=== PATIENT | female | born 1980 | race American Indian/Alaskan Native ===

== ENCOUNTER 2018-04-23 23:10 | Emergency (ER) | payer MEDICAID ==
[2014-04-07 10:29] VITALS: BMI 23.3
--- NOTE | 2018-04-24 01:02 | OBHP ---
Datetime: 04/24/2018 00:54 IP Adm Impression: Term, intrauterine IP Admit Plan: Observation/Evaluation; Discharge home Admit Comment, IP Provider: Patient is a @ 40 wks with complaints of uterine contractions, n o vaginal bleeding, no leaking, +FM. Patient reports no antepartum history, prevoius x , no medi kay problems, no previous surgeries VE=L/T/C FHR = 150 mod darrell, +accels, no decels TOCO = ctxning q 5-7 mins A/P 1. Patient evalauted and ruled out for labor. L/T/C on exam and contractions not causing a lot of discomfort. 2. Discussed with patient plan of care is for discharge, patient has appt this week with clinic - will discuss with them at that time plan for induction 3. Otherwise labor precautions given, discharge home Pelvic Type - PN: Adequate Extremities - PN: Normal Abdomen - PN: Normal Back - PN: Normal Breast - PN: Normal Lungs - PN: Normal Heart - PN: Normal Thyroid - PN: Normal Neurologic - PN: Normal HEENT - PN: Normal General - PN: Normal FHR - Baseline A Provider: 150 Contraction Comments Provider: q 5-7 mins EGA AdmitDate IP: 40.0 Vital Signs Provider: Reviewed; Within Normal Limits IP Chief Complaint: Uterine contractions NICHD Variability Prov Fetus A: Moderate 6-25bpm NICHD Accel Fetus A IP Provider: [id number] FHR Category Provider Fetus A: Category I NICHD Decel Fetus A IP Provider: None Dilatation, Provider: closed Effacement, Provider: thick Station, Provider: high Genitourinary Exam: Normal DTRs - PN: Normal
--- NOTE | 2018-04-24 01:03 | OBDCSUM ---
Datetime: 04/24/2018 00:10 Discharged to, Provider: Home Follow up at, Provider: Primary Care Provider [facility] Disch Instr Activity: Normal activity Disch Instr Diet: Regular Discharge Diagnosis, Provider: Christiano Labor - Undelivered Discharge Time: 04/24/2018 00:10 Follow up in weeks, Provider: Tomorrow 04/24/2018 on scheduled appointment Disch Referrals: None
== END 2018-04-24 00:10 | disposition home or self-care (01) ==
LOC: H.EROB2 23:10
DX: O26.93 Pregnancy related conditions, unspecified, third trimester (principal); R10.2 Pelvic and perineal pain; O48.0 Post-term pregnancy; Z3A.40 40 weeks gestation of pregnancy

== ENCOUNTER 2018-04-24 05:29 | Inpatient (IN) | payer MEDICAID ==
[2018-04-24 05:55] VITALS: BMI 33.7
[2018-04-24] MEDS ORDERED: Lactated Ringer's 1,000 ML IV ONE (06:05)
[2018-04-24] MEDS ORDERED: Oxytocin 30 UNIT 30 UNITS/500 ML BAG IV ONE ×2 (06:05)
[2018-04-24] MEDS ORDERED: Lactated Ringer's 1,000 ML IV SCH ×5 (06:15→18:13)
[2018-04-24] MEDS ORDERED: Fentanyl/Bupivacaine HCl 250 ML EPI ONE (06:15)
[2018-04-24] MEDS ORDERED: OXYTOCIN/0.9 % NS 20 UNIT/1,000 ML BAG IV SCH ×2 (06:15→18:13)
[2018-04-24 06:25] LABS: BASO % 0.2 % (0.0-2.0); EOS % 0.7 % (0.0-4.0); HEMOGLOBIN 11.1 g/dL (12.0-16.0); LYMPH # 1.8 K/uL (1.0-4.3); MEAN CELL VOLUME 82.5 fl (81.0-99.0); MEAN CORPUSCULAR HEMOGLOBIN 27.3 pg (27.0-31.0); MEAN CORPUSCULAR HGB CONC 33.1 g/dL (33.0-37.0); MEAN PLATELET VOLUME 9.3 fl (7.2-11.7); MONO # 0.6 K/uL (0.0-0.8); MONO % 7.6 % (0.0-10.0); NEUT # 5.1 K/uL (1.8-7.0); NEUT % 67.5 % (50.0-75.0); NRBC % 0.6 % (0.0-0.0); RBC 4.08 Mil/uL (3.80-5.20); RED CELL DISTRIBUTION WIDTH 14.3 % (11.5-14.5); WHITE BLOOD COUNT 7.5 K/uL (4.8-10.8)
[2018-04-24] MEDS: Lactated Ringer's 1,000 ML IV SCH ×4 (06:30→10:30)
--- NOTE | 2018-04-24 07:54 | OBADHP ---
Datetime: 04/24/2018 07:48 Admit Comment, IP Provider: Patient is a @ 40 wks, presents grossly ruptured and in labor. P atient presented earlier in the evening and was 1cm. She came back to the hospital grossly ruptured a nd with much more painful contractions. No antepartum issues, no medical problems, previous x 1, no surgeries, no allergies VE=/-1 PHE=[id number] mod darrell, no accels, early decels TOCO ctxning q 2-4 mins A/p 1. patient presents in active labor and grossly ruptured. Admit to unit, start IVF, cbc, type and screen 2. CEFM and TOCO 3. Re-evalaute as needed, epidural offered Pelvic Type - PN: Adequate Extremities - PN: Normal Abdomen - PN: Normal Back - PN: Normal Breast - PN: Normal Lungs - PN: Normal Heart - PN: Normal Thyroid - PN: Normal Neurologic - PN: Normal HEENT - PN: Normal General - PN: Normal Presentation-Admit: Vertex FHR - Baseline A Provider: 150 Membranes, Provider: Ruptured Contraction Comments Provider: q 2-4 mins Vital Signs Provider: Reviewed; Within Normal Limits IP Chief Complaint: Uterine contractions NICHD Variability Prov Fetus A: Moderate 6-25bpm NICHD Decel Fetus A IP Provider: Early Dilatation, Provider: 7 Effacement, Provider: 100 Station, Provider: -1 Genitourinary Exam: Normal DTRs - PN: Normal EGA AdmitDate IP: 40.0 IP Adm Impression: Term, intrauterine IP Admit Plan: Admit to unit; Initiate labor protocol Datetime: 04/24/2018 00:54 NICHD Accel Fetus A IP Provider: [id number] FHR Category Provider Fetus A: Category I
[2018-04-24] MEDS ORDERED: Lidocaine 1% Inj (20ml) ONE (08:19)
--- NOTE | 2018-04-24 10:56 | OBPN ---
Datetime: 04/24/2018 10:40 IP Informed Consent Obtain: Vaginal Delivery; Induction of Labor IP Procedures: Sterile Vag Exam IP Progress Plan: Continue present management; Anticipate Vaginal Delivery Membranes, Provider: Ruptured FHR - Baseline A Provider: 160 Gestation - Est Wks by US: 40.0 Vital Signs Provider: Reviewed; Within Normal Limits FHR Category Provider Fetus A: Category II NICHD Variability Prov Fetus A: Moderate 6-25bpm Dilatation, Provider: 10 Effacement, Provider: 100 Station, Provider: 0 NICHD Decel Fetus A IP Provider: Late; Variable Datetime: 04/24/2018 09:48 IP Fetus A Comments: Q2-3 min Presentation-Admit: Vertex IP Progress Note Comment: Patient pushing currently EFM: FHR 135, having prolonged late decels with difficulty keeping the FHR tracing A/P: 1. FSE placed 2. Continuing position changes and oxygen 3. Planning for a vaginal delivery at this time Ana María Vang MD OB Fellow NICHD Accel Fetus A IP Provider: [id number] Datetime: 04/24/2018 07:48 Contraction Comments Provider: q 2-4 mins
--- NOTE | 2018-04-24 11:00 | OBPN ---
Datetime: 04/24/2018 10:40 IP Progress Note Comment: Patient is not feeling any pressure currently or the urge to push EFM: continues to have intermittent late decels but with good recovery and moderate variability A/P: 1. Epidural has been turned down, plan to let the patient labor down until she begins to feel pres sure or the urge to push 2. Continuing to place patient in the lateral position, provide oxygen, it's appropriate to contin ue labor at this time 3. Pelvis appears adequate, planning for vaginal delivery at this time Ana María Vang MD OB Fellow
[2018-04-24] MEDS ORDERED: Morphine 1 mg/ml preservative-free Inj(Duramorph) ONE (13:17)
[2018-04-24] MEDS ORDERED: DiphenhydrAMINE 50 mg/ml Inj IVP PRN ×2 (14:18→18:13)
[2018-04-24] MEDS ORDERED: Naloxone 0.4 mg/ml Inj (Adult) IVP PRN ×2 (14:18→18:13)
--- NOTE | 2018-04-24 14:22 | OBDS ---
DELIVERY PERSONNEL Nurse Music Director Certified: na Delivery Doctor: Dr Sherman Scrub Nurse: jovi Regalado Radio News Writer: ADDY Torres/Kylie Owen RN Anesthesiologist: Dr Rivera Hand Outside Cutter: na Resident: Dr Vang(fellow)/Dr Douglas MATERNAL INFORMATION Delivery Anesthesia: Epidural Medications in Delivery: Pitocin Estimated Blood Loss (ml): 800cc Placenta Cultured: na Maternal Complications: Chorioamnionitis RN Comments: Delivered by primary to baby boy;thick meconium; 5/7/8;Dr Ruffin in atten dance for the baby. Provider Comments: Pre-op dx: 37 yo at 39+ 1 wks w/ arrest of descent and chorioamnionitis Post-op dx: Same Procedure: Primary emergent low trasnverse section Surgeon: Whit Orbitread Operator: Dr. Ana María Vang, OB fellow Anesthesia: Epidural Anethesiologist: Dr. Pappas Findings: Viable male infant delivered through thick meconium at 1304. Apgars 5, 7 and 8. Wt 371 5 gms, 8#3. Larrge fibroid at the fundus. Uterus wasnot able to be delivered through the abdomen. Complications: None EBL: 900 mL LABOR SUMMARY EDC: 04/24/2018 00:00 No. Babies in Womb: 1 Attempted: No Labor Anesthesia: Epidural LABOR INFORMATION Onset of Labor: 04/24/2018 04:45 Group B Beta Strep: Negative MEMBRANES Membranes Rupture Method: Spontaneous Rupture of Membranes: 04/24/2018 04:45 Length of Rupture (hrs): 8.32 Amniotic Fluid Color: Clear Amniotic Fluid Amount: Moderate Amniotic Fluid Odor: Normal STAGES OF LABOR Stage 3 hrs: 0 Stage 3 min: 1 Total Time in Labor hrs: 8 Total Time in Labor min: 20 BABY A INFORMATION Infant Delivery Date/Time: 04/24/2018 13:04 Method of Delivery: Born in Route : No : N/A Forceps: N/A Vacuum Extraction: N/A Shoulder Dystocia : No SHOULDER DYSTOCIA BABY A Infant Delivery Date/Time: 04/24/2018 13:04 PRESENTATION/POSITION BABY A Presentation: Cephalic PLACENTA INFORMATION BABY A Placenta Delivery Time : 04/24/2018 13:05 Placenta Method of Delivery: Manual Removal Placenta Status: Delivered INFORMATION BABY A Gestational Age at Delivery: 40.0 Gestational Status: Term Infant Outcome : Liveborn Infant Condition : Stable Sex: Male WEIGHT/LENGTH BABY A Infant Birthweight (gms): 3715 Weight (lb): 8 Weight (oz): 3
--- NOTE | 2018-04-24 14:41 | OBPN ---
Datetime: 04/24/2018 12:35 IP Progress Impression: Arrest of dilatation/descent; Non-reassuring heart rate; Chorioamnioni tis IP Informed Consent Obtain: Section Delivery IP Progress Plan: Deliver- Section FHR - Baseline A Provider: 170 Gestation - Est Wks by US: 40.0 Presentation-Admit: Vertex IP Progress Note Comment: In the last 15 minutes there has been development of a maternal fever to 1 02.9 with continued tachycardia and now recurrent late decelerations A/P: 1. Development of clinical chorioamnionitis, plan to give gentamicin and clindamycin *penicilin fabiola regalado) 2. At this time we need to proceed with urgent due to monitoring with recurrent la jorje and chorioamnionitis with delivery not expected soon vaginally, mom consented and this time Ana María Vnag MD OB Fellow OB Hospitalist Addendum: Discussed the need for c/s at 12:15 pm. Pt refused to sign the consents until after she pushed more. (ES) Vital Signs Provider: Reviewed Vital Signs Provider Details: Maternal fever 102.9 FHR Category Provider Fetus A: Category II NICHD Variability Prov Fetus A: Moderate 6-25bpm NICHD Decel Fetus A IP Provider: Late Datetime: 04/24/2018 12:15 Membranes, Provider: Ruptured Contraction Comments Provider: Q2 min NICHD Accel Fetus A IP Provider: [id number]
[2018-04-24] MEDS ORDERED: Oxycodone/Acetaminophen 5/325 mg Tab PO PRN ×4 (16:34→18:13)
--- NOTE | 2018-04-24 16:37 | OBDS ---
DELIVERY PERSONNEL Nurse Embryology Professor Certified: na Delivery Doctor: Dr Sherman Scrub Nurse: jovi Regalado Marketing Editor: ADDY Torres/Kylie Owen RN Anesthesiologist: Dr Rivera Stadium Attendant: na Resident: Dr Vang(fellow)/Dr Douglas MATERNAL INFORMATION Delivery Anesthesia: Epidural Medications in Delivery: Pitocin Estimated Blood Loss (ml): 800cc Placenta Cultured: na Maternal Complications: Chorioamnionitis RN Comments: Delivered by primary to baby boy;thick meconium; 5/7/8;Dr Ruffin in atten dance for the baby. Provider Comments: Pre-op dx: 37 yo at 39+ 1 wks w/ arrest of descent and chorioamnionitis Post-op dx: Same Procedure: Primary emergent low transverse section Surgeon: Whit Assistants: Drs. Ana María Vang, OB fellow and Miguel Ángel Douglas, PGY-1 Anesthesia: Epidural Anethesiologist: Dr. Pappas Findings: Viable male delivered through thick meconium at 1304. Apgars 5, 7 and 8. Wt 371 5 gms, 8#3. Larrge fibroid at the fundus. Uterus wasnot able to be delivered through the abdomen. Complications: None EBL: 900 mL LABOR SUMMARY EDC: 04/24/2018 00:00 EDC: 04/24/2018 00:00 No. Babies in Womb: 1 Attempted: No Labor Anesthesia: Epidural LABOR INFORMATION Onset of Labor: 04/24/2018 04:45 Group B Beta Strep: Negative Group B Beta Strep: Negative MEMBRANES Membranes Rupture Method: Spontaneous Rupture of Membranes: 04/24/2018 04:45 Length of Rupture (hrs): 8.32 Amniotic Fluid Color: Clear Amniotic Fluid Amount: Moderate Amniotic Fluid Odor: Normal STAGES OF LABOR Stage 3 hrs: 0 Stage 3 min: 1 Total Time in Labor hrs: 8 Total Time in Labor min: 20 BABY A INFORMATION Infant Delivery Date/Time: 04/24/2018 13:04 Method of Delivery: Born in Route : No : N/A Forceps: N/A Vacuum Extraction: N/A Shoulder Dystocia : No SHOULDER DYSTOCIA BABY A Delivery Date/Time: 04/24/2018 13:04 PRESENTATION/POSITION BABY A Presentation: Cephalic PLACENTA INFORMATION BABY A Placenta Delivery Time : 04/24/2018 13:05 Placenta Method of Delivery: Manual Removal Placenta Status: Delivered INFORMATION BABY A Gestational Age at Delivery: 40.0 Gestational Status: Term Outcome : Liveborn Infant Condition : Stable Infant Sex: Male WEIGHT/LENGTH BABY A Birthweight (gms): 3715 Weight (lb): 8 Infant Weight (oz): 3
[2018-04-24] MEDS ORDERED: Gentamicin 80mg/50ml NS 80 MG/50 ML BAG IVPB ONE (21:15)
--- NOTE | 2018-04-24 22:55 | OP ---
PROCEDURE DATE: 04/24/2018 PREOPERATIVE DIAGNOSIS: This is a 37-year-old G4, P1-0-2-1 at 39 weeks and 1 day with arrest of descent, chorioamnionitis and non-reassuring heart tracing. POSTOPERATIVE DIAGNOSIS: This is a 37-year-old G4, P1-0-2-1 at 39 weeks and 1 day with arrest of descent, chorioamnionitis and non-reassuring heart tracing. PROCEDURE: Primary emergent low transverse section. SURGEON: Dwain Sherman MD TELEVISION EQUIPMENT OPERATOR: Drs. Ana María Vang, OB fellow and Miguel Ángel Douglas, PGY-1. ANESTHESIA: Epidural. ANESTHESIOLOGIST: Torres Rivera MD FINDINGS: Viable male , delivered through thick meconium at 1304. Apgars 5, 7 and 8 at 1, 5, and 10 minutes respectively. Weight was 3715 g or 8 pounds 3 ounces. There was a very large fibroid at the fundus. The uterus was not able to be delivered through the abdomen. COMPLICATIONS: None. ESTIMATED BLOOD LOSS: 900 mL. DESCRIPTION OF PROCEDURE: The patient was taken to the operating room, where epidural anesthesia was bolused. She was prepped and draped in the normal sterile fashion in the dorsal supine position with a leftward tilt. A Sanchez was placed in the bladder. A time-out was done. The epidural was tested and found to be adequate. A Pfannenstiel skin incision was then made with a scalpel and carried through to the underlying layer of fascia with the scalpel. The fascia was incised in the midline. The incision was extended laterally with the Angel scissors. The inferior aspect of the fascial incision was then grasped with Willian clamps, elevated and the underlying rectus muscles were dissected off bluntly with the Angel scissors. Attention was then turned to the superior aspect of this incision, which in a similar fashion was grasped, tented up with Iwllian clamps, and the rectus muscles were dissected off bluntly and with the Bovie. The rectus muscles were then in the midline. The peritoneum was identified and entered digitally. The peritoneal incision was then extended superiorly and inferiorly with good visualization of the bladder. The bladder blade was inserted. The lower uterine segment was then incised in a transverse fashion with the scalpel. The uterine incision was then extended laterally digitally. The bladder blade was removed. The infant's head delivered atraumatically. The cord was clamped and cut. The infant was handed off to the awaiting forge tender. Cord gas and cord blood was collected. The placenta was then delivered manually. The uterus was then cleared of all clots and debris with a dry sponge curettage. The uterine incision was repaired with 0 Vicryl in a running locked fashion. A second layer of the same suture was used in an imbricating fashion for hemostasis and to reinforce the incision. The abdomen was then well irrigated. The peritoneum was closed with 2-0 chromic. The rectus muscle was reapproximated with 0-chromic in a runnning stitch. The fascia was reapproximated with 0 Vicryl in a running fashion. The subcutaneous fat was well irrigated. The Bovie was applied to bleeders for hemostasis. The skin was then closed with 4-0 Monocryl in a subcuticular stitch. The patient tolerated the procedure well. Sponge, lap, and needle counts were correct. The patient had received 900 mg of clindamycin and 80 mg of gentamicin during the procedure. The patient was taken to the recovery room in stable condition. Dwain Sherman MD MTDD
[2018-04-25 06:21] LABS: MEAN CELL VOLUME 83.3 fl (81.0-99.0); MEAN CORPUSCULAR HEMOGLOBIN 26.9 pg (27.0-31.0); MEAN CORPUSCULAR HGB CONC 32.3 g/dL (33.0-37.0); RBC 3.33 Mil/uL (3.80-5.20); RED CELL DISTRIBUTION WIDTH 14.7 % (11.5-14.5); WHITE BLOOD COUNT 15.6 K/uL (4.8-10.8)
[2018-04-25 07:04] LABS: RUBELLA AB (IGG) 5.02 index
[2018-04-25] MEDS: Multivitamin With Minerals Tab PO SCH (08:11)
[2018-04-25] MEDS ORDERED: Multivitamin With Minerals Tab PO SCH (09:00)
--- NOTE | 2018-04-25 14:44 | OBPPN ---
Datetime: 04/25/2018 06:01 PP Pain Prov: Within normal limits PP Nausea Prov: Denies PP Flatus Prov: No PP BM Prov: No PP Plan Prov: Continue present management PP Progress Note Prov: S: 37 y/o s/p C section on 04/24/18 due to arrest of descend and chor ioamnionitis, today POD1. Seen and examined at bedside this morning. Patient c/o pelvic pain that get s relief w/ pain medication. Patient has not been OOB yet after the surgery, is drinking some liquids w/o N/V. There is Sanchez in place with clear urine output, reported 950ml of urine since 11PM. Patien t has not passed flatus yet. Patient has not started , baby in nursery. Patient denies H A, CP ,SOB, blurry vision, chills, calf pain. O: VS 4AM: BP 122/ 66 HR 113, T99.5 GEN: NAD HEENT: NCAT LUNGS: CTA, no wheezing CVS: RRR, S1, S2 present normal, no murmurs. ABD: noted distended, BS are decreased, mild tenderness to palpation of abd, uterus palpated appro ximately 1cm above umbilical level, dressing removed and Pfannenstiel incision seen well approximate d, clean and intact. EXT: No edema, Maury's negative A/P 37 y/o s/p C section on 04/24/18 due to arrest of descend and chorioamnionitis, today in h er POD1. Patient to start today ambulation and advance diet. -Advance to Regular diet as tolerated -Remove Sanchez cath -Encourage ambulation, and reinforced to patient importance of ambulation -Encourage -PNV 1 tab PO daily -C/use Incentive Spirometer -Pain management: Ibuprofen 600 mg PO Q6h prn for mild pain, Percocet 1 tab Q4h PRN for moderate p ain, Percocet 2 tabs Q4h PRN for severe pain -D/C planning on 04/27/18 Ximena Wills MD PGY1 OB Hospitalist note: On rounds, I saw this patient. Agree with PGY1 note YOLANDE H/H 02/09 - Pt madhu winchester the hallways - asymptomatic Vital Signs Provider PP: Reviewed
[2018-04-26] MEDS: Multivitamin With Minerals Tab PO SCH (08:58)
--- NOTE | 2018-04-26 09:04 | OBPPN ---
Datetime: 04/26/2018 06:03 PP Pain Prov: Within normal limits PP Nausea Prov: Denies PP Flatus Prov: Yes PP BM Prov: No PP Heart Prov: Normal PP Lungs Prov: Normal PP Comments Phys Exam Prov: See progress note PP Impression Prov: Normal progression PP Plan Prov: Continue present management PP Progress Note Prov: S: 37 y/o s/p C section on 04/24/18 due to arrest of descend and chor io, today POD2. Seen and examined at bedside this morning. Patient c/o pelvic pain that gets relief w / pain medication. Patient is getting OBB and ambulating w/o dizziness, is tolerating regular diet w/ o N/V. Patient is voiding well, is passing flatus, no BM yet. Lochia is like menses in volume. Patien t denies PARKS, CP, SOB, palpitations, fever, chills, calf pain. O: VS WNL GEN: comfortable in bed, NAD HEENT: NCAT LUNGS: CTA, no wheezing CVS: RRR, S1, S2 present normal, no murmurs. ABD: noted mild distension only which is improved from previous day, + BS, uterus palpated at umbi lical level, Pfannenstiel incision is well approximated, clean and intact. EXT: LE edema +2, Maury's negative A/P 37 y/o s/p C section on 04/24/18 due to arrest of descend and chorioamnionitis, today in h er POD2 with normal progression of . -Regular diet -Encourage ambulation -Encourage -PNV 1 tab PO daily -C/use Incentive Spirometer -Pain management: Ibuprofen 600 mg PO Q6h prn for mild pain, Percocet 1 tab Q4h PRN for moderate p ain, Percocet 2 tabs Q4h PRN for severe pain -D/C planning on 04/27/18 Ximena Wills MD PGPY1 The patient was seen with the resident I agree with the note Vital Signs Provider PP: Reviewed; Within Normal Limits
[2018-04-26 19:31] VITALS: BP 143/86; PULSE 100; RESP 20; TEMP 98.4; O2SAT 98
== END 2018-04-26 15:00 | disposition home or self-care (01) | DRG 371 ==
LOC: H.EROB2 05:29 → H.L&D 06:05 → H.OB/GYN 16:58
PROVIDERS: ADMIT Obstetrics & Gynecology; ATTEND Obstetrics & Gynecology
PROC: 10D00Z1 Extraction of Products of Conception, Low, Open Approach (ICD-10-PCS; principal; 2018-04-24)
PROC: 4A1HXCZ Monitoring of Products of Conception, Cardiac Rate, External Approach (ICD-10-PCS; 2018-04-24)
DX: O41.1230 Chorioamnionitis, third trimester, not applicable or unspecified (principal); O75.2 Pyrexia during labor, not elsewhere classified; O77.0 Labor and delivery complicated by meconium in amniotic fluid; O76 Abnormality in fetal heart rate and rhythm complicating labor and delivery; O62.0 Primary inadequate contractions; O62.1 Secondary uterine inertia; O34.13 Maternal care for benign tumor of corpus uteri, third trimester; D25.9 Leiomyoma of uterus, unspecified; O09.523 Supervision of elderly multigravida, third trimester; Z3A.39 39 weeks gestation of pregnancy; Z37.0 Single live birth; Z88.0 Allergy status to penicillin; Z91.040 Latex allergy status